=== PATIENT | female | born 1960 | race Caucasian/White ===

== ENCOUNTER → 2024-01-06 16:48 | Outpatient (REF) | payer OTHER, SELFPAY | LOC: HWRAD 16:48 | PROVIDERS: ATTENDING PHYSICIAN Family Medicine | DX: M79.644 Pain in right finger(s) (principal) | CPT/HCPCS: 73130 ==

== ENCOUNTER → 2024-01-08 09:32 | Outpatient (REF) | payer OTHER, SELFPAY | LOC: HWWDC 09:32 | PROVIDERS: ATTENDING PHYSICIAN Family Medicine | DX: Z12.39 Encounter for other screening for malignant neoplasm of breast (principal); Z12.31 Encounter for screening mammogram for malignant neoplasm of breast | CPT/HCPCS: 77063; 77067 ==